=== PATIENT | male | born 1950 | race Caucasian/White ===

== ENCOUNTER → 2019-02-13 | Outpatient (CLI) | payer OTHER, MEDICARE ==
[2019-02-13 13:22] LABS: ABSOLUTE EOSINOPHILS # (AUTO) 0.1 10^3/uL (0.0-0.6); ABSOLUTE LYMPHOCYTES (AUTO) 2.5 10^3/uL (0.5-4.7); ABSOLUTE MONOCYTES (AUTO) 0.9 10^3/uL (0.1-1.4); ABSOLUTE NEUT (AUTO) 5.3 10^3/uL (1.7-8.2); BASOPHILS % (AUTO) 0.5 % (0-2); EOSINOPHILS % (AUTO) 1.7 % (0-6); HEMOGLOBIN 14.7 g/dL (13.5-17.0); MEAN CORPUSCULAR HEMOGLOBIN 30.5 pg (27.0-33.4); MEAN CORPUSCULAR HGB CONC 34.2 g/dL (32.0-36.0); MEAN CORPUSCULAR VOLUME 89 fl (80-97); MONOCYTES % (AUTO) 9.6 % (3-13); PLATELET COUNT 254 10^3/uL (150-450); RED BLOOD COUNT 4.81 10^6/uL (4.35-5.55); RED CELL DISTRIBUTION WIDTH 14.3 % (11.5-14.0); SEGMENTED NEUTROPHILS % (AUTO) 60.2 % (42-78); TOTAL CELLS COUNTED % (AUTO) 100 %; WHITE BLOOD COUNT 8.9 10^3/uL (4.0-10.5)
[2019-02-13 13:26] LABS: APPEARANCE,URINE SLIGHTLY-CLOUDY; BILIRUBIN,URINE NEGATIVE (NEGATIVE); COLOR,URINE DARK YELLOW; GLUCOSE, URINE NEGATIVE (NEGATIVE); INTERNATIONAL RATION (INR) 0.97; KETONES,URINE NEGATIVE (NEGATIVE); LEUKOCYTE ESTERASE,URINE NEGATIVE (NEGATIVE); NITRITE,URINE NEGATIVE (NEGATIVE); PROTEIN,URINE NEGATIVE (NEGATIVE); PROTHROMBIN TIME 12.9 SEC (11.4-15.4); URINE SPECIFIC GRAVITY 1.023; UROBILINOGEN,URINE NEGATIVE mg/dL (<2.0)
[2019-02-13 13:27] LABS: PARTIAL THROMBOPLASTIN TIME 28.4 SEC (23.5-35.8)
== END ==
LOC: LAB 12:46
PROVIDERS: ATTEND Pain Medicine Interventional Pain Medicine
DX: D68.9 Coagulation defect, unspecified (principal)
CPT/HCPCS: 36415; 81001; 85025; 85610; 85730

== ENCOUNTER 2019-04-03 07:21 | Day surgery (SDC) | payer OTHER, MEDICARE ==
[2019-03-28 09:49] LABS: HEMATOCRIT 43.7 % (37.9-51.0); HEMOGLOBIN 14.9 g/dL (13.5-17.0); MEAN CORPUSCULAR HEMOGLOBIN 30.4 pg (27.0-33.4); MEAN CORPUSCULAR HGB CONC 34.1 g/dL (32.0-36.0); MEAN CORPUSCULAR VOLUME 89 fl (80-97); PLATELET COUNT 204 10^3/uL (150-450); RED CELL DISTRIBUTION WIDTH 13.7 % (11.5-14.0)
[2019-03-28 09:59] LABS: INTERNATIONAL RATION (INR) 0.93; PROTHROMBIN TIME 12.5 SEC (11.4-15.4)
[2019-03-28 10:00] LABS: PARTIAL THROMBOPLASTIN TIME 32.2 SEC (23.5-35.8)
--- NOTE | 2019-03-28 10:10 | RADIOLOGY REPORT (SQ) ---
EXAM DESCRIPTION: CHEST PA/LATERAL COMPLETED DATE/TIME: 03/28/2019 9:42 am REASON FOR STUDY: PRE-OP COMPARISON: None. EXAM PARAMETERS: NUMBER OF VIEWS: two views TECHNIQUE: Digital Frontal and Lateral radiographic views of the chest acquired. RADIATION DOSE: NA LIMITATIONS: none FINDINGS: LUNGS AND PLEURA: Minimal linear left basilar opacities, likely atelectasis or scarring. No other airspace disease. No pleural effusion or pneumothorax. Increased AP diameter of the thorax . MEDIASTINUM AND HILAR STRUCTURES: No masses or contour abnormalities. HEART AND VASCULAR STRUCTURES: Normal heart size. Aortic atherosclerosis. BONES: No acute findings. HARDWARE: None in the chest. OTHER: No other significant finding. IMPRESSION: Minimal linear left basilar opacities, likely atelectasis or scarring. No other evidenc e of acute cardiopulmonary process. TECHNICAL DOCUMENTATION: JOB ID: [id number] [employer]- All Rights Reserved Reading location - IP/workstation name: [email or web address]
[2019-03-28 14:04] LABS: APPEARANCE,URINE CLEAR; BILIRUBIN,URINE NEGATIVE (NEGATIVE); COLOR,URINE STRAW; GLUCOSE, URINE NEGATIVE (NEGATIVE); KETONES,URINE NEGATIVE (NEGATIVE); LEUKOCYTE ESTERASE,URINE NEGATIVE (NEGATIVE); NITRITE,URINE NEGATIVE (NEGATIVE); PROTEIN,URINE NEGATIVE (NEGATIVE); URINE SPECIFIC GRAVITY 1.006; UROBILINOGEN,URINE NEGATIVE mg/dL (<2.0)
--- NOTE | 2019-03-28 14:37 | EKG REPORT ---
SEVERITY:- NORMAL ECG - SINUS RHYTHM : Confirmed by: Jeremiah Vargas 28-Mar-2019 14:36:26
[~2019-04-03 07:21] MED LIST: CEFAZOLIN 1 GM/D5W RTU 1 GM/50 ML RTUPB IV PRN; LACTATED RINGERS 1000 ML IV PRN; LIDOCAINE 0.5% INJ-PF (5 MG/ML) 50 ML SDV SUBCUT PRN
[2019-04-03] MEDS ORDERED: CEFAZOLIN 1 GM/D5W RTU 1 GM/50 ML RTUPB IV ONE (07:45)
[2019-04-03] MEDS ORDERED: BUPIVACAINE HCL 0.25% /EPINEPHRINE INJ/PF 30 ML SDV ONE (07:53)
[2019-04-03] MEDS ORDERED: SODIUM BICARBONATE 4.2% INJ (2.5 MEQ/5 ML) VIAL ONE (07:53)
[2019-04-03] MEDS ORDERED: LIDOCAINE 1% INJ-PF (10 MG/ML) 30 ML SDV ONE (07:53)
[2019-04-03] MEDS ORDERED: MIDAZOLAM 2 MG/2 ML INJ ONE (09:08)
[2019-04-03] MEDS ORDERED: FENTANYL CITRATE INJ/PF 100 MCG/2 ML AMPUL ONE ×2 (09:08→10:27)
[2019-04-03] MEDS ORDERED: PROPOFOL INJ 200 MG/20 ML VIAL IV ONE (09:08)
[2019-04-03] MEDS ORDERED: LIDOCAINE 2% INJ (20 MG/ML) 20 ML MDV ONE (09:09)
[2019-04-03] MEDS ORDERED: FENTANYL CITRATE INJ/PF 100 MCG/2 ML AMPUL IV PRN ×3 (09:43)
[2019-04-03] MEDS ORDERED: MEPERIDINE HCL/PF INJ 25 MG/1 ML DISP.SYRIN IV PRN (09:43)
[2019-04-03] MEDS ORDERED: ONDANSETRON HCL INJ/PF 4 MG/2 ML SDV IV PRN (09:43)
[2019-04-03] MEDS ORDERED: OXYCODONE-ACETAMINOPHEN 5-325 MG TABLET PO PRN ×3 (09:43→11:48)
[2019-04-03] MEDS ORDERED: DIPHENHYDRAMINE HCL 50 MG/ML VIAL IV PRN (09:43)
[2019-04-03] MEDS ORDERED: MORPHINE SULFATE 10 MG/ML INJ IV PRN (09:43)
[2019-04-03] MEDS ORDERED: CEFAZOLIN INJ 1 GM VIAL ONE (11:14)
[2019-04-03] MEDS: FENTANYL CITRATE INJ/PF 100 MCG/2 ML AMPUL ONE ×2 (11:16→11:22)
--- NOTE | 2019-04-03 11:35 | OPERATIVE REPORT E ---
Operative Report NAME: SAPNA JONES : 1950 AGE: 68Y DATE OF SURGERY: 04/03/2019 ROOM: PREOPERATIVE DIAGNOSIS: Post-laminectomy syndrome with chronic back and lower extremity pain and lumbar radiculopathy. POSTOPERATIVE DIAGNOSIS: Post-laminectomy syndrome with chronic back and lower extremity pain and lumbar radiculopathy. OPERATIVE PROCEDURE: 1. Implantation of right and left spinal cord stimulating electrodes using [employer] octrodes. 2. Implantation of pulse generator. 3. Fluoroscopy for needle and lead placement. 4. Programming and analysis for impedance testing. PRINCIPAL SURGEON: SARATH MALAVE M.D. HALL WORKER: MARCO ANTONIO PORTILLO M.D. ANESTHESIA: MAC. BLOOD LOSS: 5 mL. COMPLICATIONS: None. INDICATIONS: Successful outpatient trial of spinal cord stimulation. SPECIMENS REMOVED: None. PROCEDURE NOTE: After obtaining informed consent advising the patient of the risks and benefits, including serious neurological injury, bleeding, and infection, allergic reaction, paralysis, and , he was taken to the operating room suite and placed comfortably in the prone position. Comfort was assessed visually and verbally. MAC anesthesia was administered. He was prepped with chlorhexidine with appropriate drying time and then draped. Fluoroscopy was used to evaluate the spine and identify a suitable entrance site for the epidural space as well as skin incision site. The pulse generator site over the right flank was identified preoperatively and marked. Both regions were infiltrated with 1% lidocaine with bicarb followed by 0.25% bupivacaine with epinephrine. Sharp and blunt dissection were performed over both selected sites. Electrocautery was used for hemostasis as necessary. Once a suitable working space was created in the lumbar incision, a Abel retractor was placed. The paraspinal musculature was anesthetized with 1% lidocaine beginning on the right followed by the left for placement of the Tuohy needle. The right needle was placed first at the T12-L1 interspace without difficulty using dtwv-bs-shobjbxepj-to-saline technique. The lead was advanced into the midline and up to approximately T12. The lateral view was checked and found to be satisfactory. This was repeated on the left side. Once both leads were satisfactorily placed into the posterior location, the leads were advanced to the middle of T8 in a slightly staggered position. Again, x-ray views were taken, and the AP and lateral views reassured satisfactory placement. Pursestrings were placed around each needle using 0 Mersilene followed by distal stay sutures. Beginning on the right, the introducer needle was removed, with care being taken not to dislodge the electrode. The pursestring was secured and the tubular anchor was placed over the lead and secured to the pursestring as well as the fascia. The stay suture was secured as well. Some very slight lead migration of the distal lead occurred but did not need to be revised. This was repeated on the left. Once both leads were secured the leads were tunneled to the pulse generator pocket and connected to the pulse generator. The impedance was tested and found to be satisfactory with slight insertion and reinsertion of the 8 through 15 electrode. It should be noted that the left lead was marked and placed in the 0 through 7 space on the pulse generator. All hex nuts were secured. The wounds were copiously irrigated with Betadine-containing irrigation solution. The pulse generator pocket was closed with vertical inverted mattress sutures using 2-0 Polysorb followed by Dermabond tape and Dermabond cement. When this was dried, Telfa and Tegaderm were placed. The midline incision was closed with 2 layers of 2-0 followed by 3-0 followed by howard and then secured and sealed with the Dermabond cement and tape. Again, Telfa and Tegaderm were placed over these. The patient was then taken to the PACU for further postoperative care and monitoring. The patient tolerated this well. DICTATING PHYSICIAN: MARCO ANTONIO PORTILLO M.D. [id number] PHY#: [id number] ID: [id number] JOB#: [id number] ACCT: [id number] cc:MARCO ANTONIO PORTILLO M.D. >
[2019-04-03] MEDS ORDERED: OXYCODONE-ACETAMINOPHEN 5-325 MG TABLET ONE (12:09)
[2019-04-03 13:18] VITALS: BP 120/79
--- NOTE | 2019-04-03 14:04 | RADIOLOGY REPORT (SQ) ---
EXAM DESCRIPTION: THORACOLUMBAR SPINE AP/LAT; NO CHG FLUORO COMPLETED DATE/TIME: 04/03/2019 1:54 pm REASON FOR STUDY: SPINAL STIMULATOR PLCMT ASST WITH FLUORO IN OR M54.17 RADICULOPATHY, LUMBOSACRAL REGION G89.4 CHRONIC PAIN SYNDROME COMPARISON: None. FLUOROSCOPY TIME: 3.5 minutes Spot images saved to PACS. TECHNIQUE: Intra-operative images acquired during surgical procedure to evaluate progress. NUMBER OF IMAGES: 10 LIMITATIONS: None. FINDINGS: Fluoroscopy was provided for intraoperative procedure. Please refer to the operative repo rt further discussion. IMPRESSION: IMAGE(S) OBTAINED DURING PROCEDURE. COMMENT: Quality ID [id number]: Final reports for procedures using fluoroscopy that document radiation exp osure indices, or exposure time and number of fluorographic images (if radiation exposure indices are not available) Please consult full operative report of the attending physician for description of the procedure. TECHNICAL DOCUMENTATION: JOB ID: [id number] [employer]- All Rights Reserved Reading location - IP/workstation name: [email or web address]
--- NOTE | 2019-04-03 14:04 | RADIOLOGY REPORT (SQ) ---
EXAM DESCRIPTION: THORACOLUMBAR SPINE AP/LAT; NO CHG FLUORO COMPLETED DATE/TIME: 04/03/2019 1:54 pm REASON FOR STUDY: SPINAL STIMULATOR PLCMT ASST WITH FLUORO IN OR M54.17 RADICULOPATHY, LUMBOSACRAL REGION G89.4 CHRONIC PAIN SYNDROME COMPARISON: None. FLUOROSCOPY TIME: 3.5 minutes Spot images saved to PACS. TECHNIQUE: Intra-operative images acquired during surgical procedure to evaluate progress. NUMBER OF IMAGES: 10 LIMITATIONS: None. FINDINGS: Fluoroscopy was provided for intraoperative procedure. Please refer to the operative repo rt further discussion. IMPRESSION: IMAGE(S) OBTAINED DURING PROCEDURE. COMMENT: Quality ID [id number]: Final reports for procedures using fluoroscopy that document radiation exp osure indices, or exposure time and number of fluorographic images (if radiation exposure indices are not available) Please consult full operative report of the attending physician for description of the procedure. TECHNICAL DOCUMENTATION: JOB ID: [id number] [employer]- All Rights Reserved Reading location - IP/workstation name: [email or web address]
== END 2019-04-03 13:18 | disposition home or self-care (01) ==
LOC: OROUT 07:21
PROVIDERS: ATTEND Pain Medicine Interventional Pain Medicine
DX: M54.17 Radiculopathy, lumbosacral region (principal); G89.4 Chronic pain syndrome; M96.1 Postlaminectomy syndrome, not elsewhere classified; I10 Essential (primary) hypertension; Z79.899 Other long term (current) drug therapy; K21.9 Gastro-esophageal reflux disease without esophagitis
CPT/HCPCS: 63685; 63650; 93005; 36415 ×2; 84132; 85027; 85610; 85730; 81001; 71046; 72080; 93010; 00400; J2250; J3490 ×4; J0690 ×2; J3010; J2704; 400; C1778; C1820